=== PATIENT | male | born 1970 | race Caucasian/White ===

== ENCOUNTER 2020-01-28 10:06 | Inpatient (IN) | payer OTHER ==
[~2020-01-28] VITALS: Ht 175.3 cm; Wt 85.9 kg
[2020-01-28 10:15] VITALS: Ht 175.3 cm; Wt 85.9 kg
[2020-01-28 11:38] LABS: CALCIUM 8.8 mg/dL (8.5-10.1); CARBON DIOXIDE 20.7 mmol/L (21-32); CHLORIDE SERUM 99 mmol/L (98-107); CREATININE SERUM 1.1 mg/dL (0.7-1.3); GFR1 > 60 mL/min; GLUCOSE SERUM 88 mg/dL (74-106); SODIUM SERUM 135 mmol/L (136-145)
[2020-01-28 11:45] LABS: ALBUMIN 3.5 g/dL (3.4-5.0); ALKALINE PHOSPHATASE 51 U/L (46-116); ALT/SGPT 15 U/L (16-63); AST/SGOT 19 U/L (15-37); BASOPHIL % 0.1 % (0-2); BILIRUBIN TOTAL 0.7 mg/dL (0.20-1.00); C REACTIVE PROTEIN 6.3 mg/dL (<=0.9); LACTIC DEHYDROGENASE (LDH) 221 U/L (100-190); PLATELET COUNT 250 x10^3mcL (130-400); RED CELL DISTRIBUTION WIDTH 14.3 % (11.5-14.5); TOTAL PROTEIN, SERUM 7.6 g/dL (6.4-8.2)
[2020-01-28] MEDS ORDERED: CALCIUM CARBO1250 MG (13:29)
[2020-01-28 14:18] VITALS: BP 105/77
[2020-01-28 14:23] VITALS: BP 137/87
[2020-01-28 16:29] VITALS: BP 129/82
[2020-01-28 19:35] VITALS: BP 129/78
[2020-01-29 06:45] VITALS: BP 128/78
[2020-01-29 07:02] LABS: BASOPHIL % 0.3 % (0-2); PLATELET COUNT 265 x10^3mcL (130-400); RED CELL DISTRIBUTION WIDTH 14.4 % (11.5-14.5)
[2020-01-29 07:08] LABS: C REACTIVE PROTEIN 4.9 mg/dL (<=0.9); CALCIUM 8.7 mg/dL (8.5-10.1); CARBON DIOXIDE 23.2 mmol/L (21-32); CHLORIDE SERUM 102 mmol/L (98-107); GFR1 > 60 mL/min; GLUCOSE SERUM 97 mg/dL (74-106); SODIUM SERUM 137 mmol/L (136-145)
[2020-01-29 07:12] LABS: POTASSIUM SERUM 5.6 mmol/L (3.5-5.1)
[2020-01-29 08:04] LABS: BILIRUBIN DIRECT 0.14 mg/dL (0.0-0.2); BILIRUBIN TOTAL 0.46 mg/dL (0.20-1.00); TOTAL PROTEIN, SERUM 7.5 g/dL (6.4-8.2)
[2020-01-29 08:06] LABS: ALBUMIN 3.1 g/dL (3.4-5.0)
[2020-01-29 09:32] VITALS: BP 130/83
[2020-01-29 13:16] VITALS: BP 121/77
[2020-01-29 18:15] VITALS: BP 134/85
[2020-01-29 20:30] VITALS: BP 126/72
[2020-01-29 23:35] LABS: microscopic required? NO
[2020-01-30 00:17] LABS: urine erythrocyte NEGATIVE (NEGATIVE)
[2020-01-30 05:45] VITALS: BP 127/84
[2020-01-30 06:36] LABS: BASOPHIL % 0.3 % (0-2); PLATELET COUNT 307 x10^3mcL (130-400); RED CELL DISTRIBUTION WIDTH 13.9 % (11.5-14.5)
[2020-01-30 07:22] LABS: ALKALINE PHOSPHATASE 47 U/L (46-116); ALT/SGPT 23 U/L (16-63); AST/SGOT 18 U/L (15-37); BILIRUBIN TOTAL 0.3 mg/dL (0.20-1.00); CALCIUM 8.4 mg/dL (8.5-10.1); CARBON DIOXIDE 25.3 mmol/L (21-32); CHLORIDE SERUM 103 mmol/L (98-107); CREATININE SERUM 0.8 mg/dL (0.7-1.3); GFR1 > 60 mL/min; GLUCOSE SERUM 91 mg/dL (74-106); POTASSIUM SERUM 4.5 mmol/L (3.5-5.1); SODIUM SERUM 139 mmol/L (136-145); TOTAL PROTEIN, SERUM 7.2 g/dL (6.4-8.2)
[2020-01-30 08:37] VITALS: BP 132/86
[2020-01-30 12:08] VITALS: BP 138/75
[2020-01-30 15:33] VITALS: BP 130/71
[2020-01-30 22:30] VITALS: BP 131/77
[2020-01-31 06:39] VITALS: BP 129/79
[2020-01-31 06:49] LABS: BILIRUBIN DIRECT 0.13 mg/dL (0.0-0.2); BILIRUBIN TOTAL 0.39 mg/dL (0.20-1.00); TOTAL PROTEIN, SERUM 6.8 g/dL (6.4-8.2)
[2020-01-31 06:53] LABS: ALBUMIN 2.8 g/dL (3.4-5.0)
[2020-01-31 09:18] VITALS: BP 127/76
[2020-01-31 13:16] VITALS: BP 125/76
[2020-01-31 18:03] VITALS: BP 135/78
[2020-01-31 20:19] VITALS: BP 128/71
[2020-02-01 05:29] VITALS: BP 132/87
[2020-02-01 07:07] LABS: BASOPHIL % 0.1 % (0-2); PLATELET COUNT 355 x10^3mcL (130-400); RED CELL DISTRIBUTION WIDTH 14.1 % (11.5-14.5)
[2020-02-01 07:37] LABS: ALKALINE PHOSPHATASE 56 U/L (46-116); ALT/SGPT 73 U/L (16-63); AST/SGOT 34 U/L (15-37); BILIRUBIN TOTAL 0.3 mg/dL (0.20-1.00); CALCIUM 8.3 mg/dL (8.5-10.1); CARBON DIOXIDE 30.3 mmol/L (21-32); CHLORIDE SERUM 100 mmol/L (98-107); CREATININE SERUM 0.7 mg/dL (0.7-1.3); GFR1 > 60 mL/min; GLUCOSE SERUM 80 mg/dL (74-106); POTASSIUM SERUM 4.1 mmol/L (3.5-5.1); SODIUM SERUM 136 mmol/L (136-145); TOTAL PROTEIN, SERUM 6.2 g/dL (6.4-8.2)
[2020-02-01 08:58] VITALS: BP 133/80
[2020-02-01 12:29] VITALS: BP 123/79
[2020-02-01 16:24] VITALS: BP 116/68
[2020-02-01 20:22] VITALS: BP 115/69
[2020-02-02 06:11] VITALS: BP 123/78
[2020-02-02 06:38] LABS: BASOPHIL % 0.4 % (0-2); PLATELET COUNT 343 x10^3mcL (130-400); RED CELL DISTRIBUTION WIDTH 13.8 % (11.5-14.5)
[2020-02-02 06:51] LABS: ALKALINE PHOSPHATASE 54 U/L (46-116); ALT/SGPT 96 U/L (16-63); AST/SGOT 49 U/L (15-37); BILIRUBIN DIRECT 0.08 mg/dL (0.0-0.2); BILIRUBIN TOTAL 0.3 mg/dL (0.20-1.00); CALCIUM 8.8 mg/dL (8.5-10.1); CARBON DIOXIDE 26.1 mmol/L (21-32); CHLORIDE SERUM 98 mmol/L (98-107); CREATININE SERUM 0.7 mg/dL (0.7-1.3); GFR1 > 60 mL/min; GLUCOSE SERUM 86 mg/dL (74-106); POTASSIUM SERUM 3.9 mmol/L (3.5-5.1); SODIUM SERUM 133 mmol/L (136-145); TOTAL PROTEIN, SERUM 6.6 g/dL (6.4-8.2)
[2020-02-02 06:53] LABS: ALBUMIN 2.8 g/dL (3.4-5.0)
[2020-02-02 08:43] VITALS: BP 115/78
[2020-02-02 12:23] VITALS: BP 133/81
[2020-02-02 15:25] VITALS: BP 133/81
[2020-02-02 16:16] VITALS: BP 131/74
[2020-02-02 21:09] VITALS: BP 126/69
[2020-02-03 06:39] VITALS: BP 123/78
[2020-02-03 07:22] LABS: RED CELL DISTRIBUTION WIDTH 13.9 % (11.5-14.5)
[2020-02-03 07:37] LABS: CALCIUM 8.7 mg/dL (8.5-10.1); CARBON DIOXIDE 31.7 mmol/L (21-32); CHLORIDE SERUM 97 mmol/L (98-107); CREATININE SERUM 0.8 mg/dL (0.7-1.3); GFR1 > 60 mL/min; GLUCOSE SERUM 84 mg/dL (74-106); POTASSIUM SERUM 3.8 mmol/L (3.5-5.1); SODIUM SERUM 132 mmol/L (136-145)
[2020-02-03 07:38] LABS: PLATELET COUNT 435 x10^3mcL (130-400)
[2020-02-03 08:58] VITALS: BP 128/84
[2020-02-03 11:54] LABS: SEGMENTED NEUTROPHILS 70 % (37-75)
[2020-02-03 11:55] LABS: MONOCYTE 9 % (0-7); rbc morphology (normal/abnorm) NORMAL (NORMAL)
[2020-02-03 12:13] VITALS: BP 122/72
[2020-02-03 12:59] VITALS: BP 122/72
[2020-02-03 13:05] VITALS: BP 122/72
== END 2020-02-03 17:50 | disposition other institution (70) | DRG 177 ==
LOC: ED 10:06 → DU 12:00
PROVIDERS: Emergency Medicine; ADMIT Internal Medicine; ATTEND Internal Medicine
PROC: XW033E5 Introduction of Remdesivir Anti-infective into Peripheral Vein, Percutaneous Approach, New Technology Group 5 (ICD-10-PCS; principal; 2020-01-29)
DX: U07.1 COVID-19 (principal); J12.89 Other viral pneumonia; J96.01 Acute respiratory failure with hypoxia; J44.0 Chronic obstructive pulmonary disease with (acute) lower respiratory infection; E87.5 Hyperkalemia; F41.9 Anxiety disorder, unspecified; Z79.891 Long term (current) use of opiate analgesic; Z79.899 Other long term (current) drug therapy; Z79.01 Long term (current) use of anticoagulants
CPT/HCPCS: 36600; 83880; 85378; 87804; 90658; 90732; G0378; J1100; J1650; J2270; J2405; J2550; J3010; J3490; J3535; J7040; J7050; J8540; Q0092